=== PATIENT | female | born 1960 | race Caucasian/White ===

== ENCOUNTER → 2016-08-31 | Outpatient (CLI) | payer OTHER | END | disposition home or self-care (01) | LOC: CFH 08:11 | PROVIDERS: ATTEND Internal Medicine Critical Care Medicine | DX: Z12.2 Encounter for screening for malignant neoplasm of respiratory organs (principal); R91.1 Solitary pulmonary nodule; D73.9 Disease of spleen, unspecified; K44.9 Diaphragmatic hernia without obstruction or gangrene; Z87.891 Personal history of nicotine dependence | CPT/HCPCS: G0297 ==

== ENCOUNTER → 2017-02-16 | Outpatient (CLI) | payer OTHER | LOC: STAR 15:12 | PROVIDERS: ATTEND Surgery | DX: Z02.9 Encounter for administrative examinations, unspecified (principal) ==

== ENCOUNTER 2017-03-01 06:04 | Day surgery (SDC) | payer OTHER ==
[2017-02-16 15:09] VITALS: BP 115/64
[~2017-03-01] VITALS: Ht 175.3 cm; Wt 97.8 kg
[~2017-03-01 06:04] MED LIST: ESCI10TA10 PO; ESTR1PAT65 TP
[2017-03-01 06:38] VITALS: BP 115/64
[2017-03-01] MEDS ORDERED: LACTATED RINGERS 1,000 ML IV SCH (06:38)
[2017-03-01] MEDS ORDERED: FENTANYL PF 100 MCG/2ML ONE ×5 (06:48→08:47)
[2017-03-01] MEDS ORDERED: MIDAZOLAM 1 MG/ML, 2ML ONE ×2 (06:48→07:15)
[2017-03-01] MEDS ORDERED: PROPOFOL 10 MG/ML, 20ML ONE ×2 (06:49→07:15)
[2017-03-01] MEDS ORDERED: ROCURONIUM 10 MG/ML,10ML ONE ×2 (06:49→07:15)
[2017-03-01] MEDS ORDERED: GLYCOPYRROLATE 0.4 MG/2 ML, 2ML ONE (06:51)
[2017-03-01] MEDS ORDERED: NEOSTIGMINE 1 MG/ML, 10ML ONE ×2 (06:51→07:15)
[2017-03-01] MEDS ORDERED: ONDANSETRON 2MG/ML, 2ML ONE ×3 (06:51→08:03)
[2017-03-01] MEDS ORDERED: DEXAMETHASONE 4 MG/ML, 1ML ONE ×3 (06:51→07:15)
[2017-03-01] MEDS ORDERED: CEFOTETAN PMX 2GM/50ML 50 ML ONE (06:52)
[2017-03-01] MEDS ORDERED: EPINEPHRINE 1 MG/ML, 1ML ONE (06:56)
[2017-03-01] MEDS ORDERED: BUPIVACAINE/PF 0.5% ONE (06:56)
[2017-03-01] MEDS ORDERED: LIDOCAINE 1%, 2ML SQ PRN (07:00)
[2017-03-01] MEDS ORDERED: CEFOTETAN 2 GM ONE (07:15)
[2017-03-01] MEDS ORDERED: GLYCOPYRROLATE 0.2MG/1ML, 5ML ONE (07:15)
[2017-03-01] MEDS ORDERED: KETOROLAC 30 MG/1 ML ONE (07:15)
[2017-03-01] MEDS ORDERED: EPINEPHRINE 1 MG/ML, 1ML INFIL ONE (07:28)
[2017-03-01] MEDS ORDERED: MEPERIDINE/PF 25MG/0.5ML IVPush PRN (07:30)
[2017-03-01] MEDS ORDERED: ONDANSETRON 2MG/ML, 2ML IVPush PRN (07:30)
[2017-03-01] MEDS ORDERED: HYDROmorphone 1 MG/ML, 1ML IV PRN (07:30)
[2017-03-01] MEDS ORDERED: PROMETHAZINE 25 MG/ML, 1ML IV PRN (07:30)
[2017-03-01] MEDS ORDERED: hydrALAzine 20 MG/ML, 1ML IV PRN (07:30)
[2017-03-01] MEDS ORDERED: OXYcodone 5 MG/5 ML ORAL.SOL UDC PO PRN (07:30)
[2017-03-01] MEDS ORDERED: LABETALOL 5MG/ML, 20ML IV PRN (07:30)
[2017-03-01] MEDS ORDERED: ACETAMINOPHEN 325 MG TABLET PO PRN (07:30)
[2017-03-01] MEDS ORDERED: BUPIVACAINE/PF 0.5% INFIL ONE (07:35)
[2017-03-01] MEDS ORDERED: OXYcodone 5 MG/5 ML ORAL.SOL UDC ONE (08:01)
[2017-03-01] MEDS ORDERED: ACETAMINOPHEN 650 MG/20.3 ML UDC ONE (08:01)
[2017-03-01] MEDS: FENTANYL PF 100 MCG/2ML IV PRN ×3 (08:06→08:48)
== END 2017-03-01 11:18 ==
LOC: OUT 06:04
PROVIDERS: ATTEND Surgery
DX: K80.10 Calculus of gallbladder with chronic cholecystitis without obstruction (principal); G47.33 Obstructive sleep apnea (adult) (pediatric); Z90.710 Acquired absence of both cervix and uterus; Z98.890 Other specified postprocedural states
CPT/HCPCS: 47562; 88304; J0171; J1100; J1885; J2250; J2405; J2704; J2710; J3010; J3490; J7120; S0074

== ENCOUNTER → 2017-03-08 | Outpatient (CLI) | payer OTHER | END | disposition home or self-care (01) | LOC: RAD 08:11 | PROVIDERS: ATTEND Internal Medicine Critical Care Medicine | DX: R91.1 Solitary pulmonary nodule (principal); K44.9 Diaphragmatic hernia without obstruction or gangrene | CPT/HCPCS: 71250 ==

== ENCOUNTER 2018-02-25 09:01 | Inpatient (IN) | payer OTHER ==
[~2018-02-25] VITALS: Ht 175.3 cm; Wt 93.0 kg
[2018-02-25] MEDS ORDERED: PIPERACILLIN/TAZO/PMX 3.375GM 50 ML IVPB ONE (09:30)
[2018-02-25] MEDS ORDERED: VANCOMYCIN PER PHARMACY IV ONE (09:30)
[2018-02-25] MEDS ORDERED: PLEASE ENTER HEIGHT AND WEIGHT MC SCH (09:30)
[2018-02-25 09:56] LABS: TROPONIN I < 0.015 ng/mL (0.000-0.045)
[2018-02-25 09:58] LABS: ALANINE AMINOTRANSFERASE 50 U/L (12-78); ALBUMIN 3.4 g/dL (3.4-5.0); ANION GAP 9 mmol/L (5-15); BASOPHILS # (AUTO) 0.04 x10^3/uL (0-0.1); BASOPHILS % (AUTO) 0 % (0-1); CALCIUM 8.7 mg/dL (8.5-10.1); CHLORIDE 104 mmol/L (98-107); CREATININE 0.87 mg/dL (0.55-1.02); EOSINOPHILS # (AUTO) 0.08 x10^3/uL (0-0.4); EOSINOPHILS % (AUTO) 1 % (1-7); LYMPHOCYTES # (AUTO) 1.67 x10^3/uL (1-3.4); LYMPHOCYTES % (AUTO) 16 % (22-44); MD NO; MEAN CORPUSCULAR HEMOGLOBIN 29.8 pg (27.0-34.8); MEAN CORPUSCULAR HGB CONC 33.5 g/dL (32.4-35.8); MEAN CORPUSCULAR VOLUME 89.1 fL (80-100); MEAN PLATELET VOLUME 7.1 fL (7.4-10.4); MONOCYTES # (AUTO) 0.57 x10^3/uL (0.2-0.8); MONOCYTES % (AUTO) 6 % (2-9); NEUTROPHILS # (AUTO) 7.95 x10^3/uL (1.8-6.8); NEUTROPHILS % (AUTO) 77 % (42-75); PLATELET COUNT 305 x10^3/uL (130-400); RED BLOOD COUNT 4.88 x10^6/uL (3.82-5.3); RED CELL DISTRIBUTION WIDTH 13.9 % (9.6-15.2)
[2018-02-25 10:00] LABS: ALKALINE PHOSPHATASE 98 U/L (45-117); BILIRUBIN,TOTAL 0.5 mg/dL (0.2-1.0); TOTAL PROTEIN 7.6 g/dL (6.4-8.2)
[2018-02-25] MEDS ORDERED: OMNIPAQUE 350 MG/ML, 100ML BOTTLE ONE (10:25)
[2018-02-25] MEDS ORDERED: VANCOMYCIN 1,500 MG in SODIUM CHLORIDE 0.9% 250 ML IV ONE (10:30)
[2018-02-25] MEDS ORDERED: PIPERACILLIN/TAZO/PMX 3.375GM 50 ML ONE (11:04)
[2018-02-25] MEDS ORDERED: METHOCARBAMOL 500 MG TABLET PO PRN (13:30)
[2018-02-25] MEDS ORDERED: ACETAMINOPHEN 325 MG TABLET PO PRN (13:30)
[2018-02-25] MEDS ORDERED: ERGOCALCIFEROL 8,000UNIT/ML PO SCH (13:30)
[2018-02-25] MEDS ORDERED: hydrALAzine 20 MG/ML, 1ML IVPush PRN (13:30)
[2018-02-25] MEDS ORDERED: ONDANSETRON 2MG/ML, 2ML IVPush PRN (13:30)
[2018-02-25] MEDS: SODIUM CHLORIDE 0.9% 1,000 ML IV SCH ×2 (13:40→21:26)
[2018-02-25] MEDS ORDERED: ERGOCALCIFEROL 50,000 UNIT CAPSULE PO SCH (14:00)
[2018-02-25] MEDS: ENOXAPARIN 40 MG/0.4 ML SQ SCH (14:26)
[2018-02-25] MEDS: KETOROLAC 30 MG/1 ML IV SCH ×2 (14:34→21:26)
[2018-02-25 14:50] LABS: BASOPHILS # (AUTO) 0.04 x10^3/uL (0-0.1); BASOPHILS % (AUTO) 0 % (0-1); EOSINOPHILS # (AUTO) 0.08 x10^3/uL (0-0.4); EOSINOPHILS % (AUTO) 1 % (1-7); LYMPHOCYTES # (AUTO) 1.92 x10^3/uL (1-3.4); LYMPHOCYTES % (AUTO) 18 % (22-44); MD NO; MEAN CORPUSCULAR HEMOGLOBIN 29.7 pg (27.0-34.8); MEAN CORPUSCULAR HGB CONC 33.8 g/dL (32.4-35.8); MEAN CORPUSCULAR VOLUME 87.7 fL (80-100); MEAN PLATELET VOLUME 6.8 fL (7.4-10.4); MONOCYTES # (AUTO) 0.53 x10^3/uL (0.2-0.8); MONOCYTES % (AUTO) 5 % (2-9); NEUTROPHILS # (AUTO) 8.02 x10^3/uL (1.8-6.8); NEUTROPHILS % (AUTO) 76 % (42-75); PLATELET COUNT 324 x10^3/uL (130-400); RED BLOOD COUNT 4.67 x10^6/uL (3.82-5.3); RED CELL DISTRIBUTION WIDTH 13.7 % (9.6-15.2)
[2018-02-25 14:56] VITALS: BP 102/68
[2018-02-25] MEDS: CEFTRIAXONE PMX 2GM/50ML 50 ML IV SCH (15:55)
[2018-02-25] MEDS: AZITHROMYCIN 500 MG in SODIUM CHLORIDE 0.9% 250 ML IV SCH (16:45)
[2018-02-25] MEDS: ALBUTEROL SULFATE 2.5 MG/3 ML NPPB SCH ×2 (18:00→22:00)
[2018-02-25 20:42] VITALS: BP 99/64
[2018-02-25] MEDS: GUAIFENESIN ER 600 MG TABLET PO SCH (21:26)
[2018-02-25] MEDS: TEMAZEPAM 15 MG CAPSULE PO PRN (21:26)
[2018-02-26 01:20] VITALS: BP 99/64
[2018-02-26] MEDS: KETOROLAC 30 MG/1 ML IV SCH ×4 (03:42→21:39)
[2018-02-26] MEDS: SODIUM CHLORIDE 0.9% 1,000 ML IV SCH ×3 (05:14→23:33)
[2018-02-26] MEDS: ALBUTEROL SULFATE 2.5 MG/3 ML NPPB SCH ×3 (06:00→21:00)
[2018-02-26 06:36] LABS: ALANINE AMINOTRANSFERASE 42 U/L (12-78); ALBUMIN 2.6 g/dL (3.4-5.0); ANION GAP 6 mmol/L (5-15); CHLORIDE 110 mmol/L (98-107)
[2018-02-26 06:38] LABS: ALKALINE PHOSPHATASE 78 U/L (45-117); BILIRUBIN,TOTAL 0.3 mg/dL (0.2-1.0); TOTAL PROTEIN 6.1 g/dL (6.4-8.2)
[2018-02-26 08:00] VITALS: BP 98/62
[2018-02-26] MEDS: ESTRADIOL 0.1 MG/24 HR PATCH TD SCH (09:00)
[2018-02-26] MEDS: GUAIFENESIN ER 600 MG TABLET PO SCH ×2 (10:18→21:39)
[2018-02-26] MEDS: CITALOPRAM 20 MG TABLET PO SCH (10:19)
[2018-02-26] MEDS: ENOXAPARIN 40 MG/0.4 ML SQ SCH (13:30)
[2018-02-26] MEDS: CEFTRIAXONE PMX 2GM/50ML 50 ML IV SCH (15:07)
[2018-02-26 15:11] VITALS: BP 108/87
[2018-02-26] MEDS: AZITHROMYCIN 500 MG in SODIUM CHLORIDE 0.9% 250 ML IV SCH (16:16)
[2018-02-26 20:31] VITALS: BP 111/70
[2018-02-26] MEDS: TEMAZEPAM 15 MG CAPSULE PO PRN (21:39)
[2018-02-27 00:28] VITALS: BP 95/60
[2018-02-27] MEDS: KETOROLAC 30 MG/1 ML IV SCH ×4 (03:30→21:30)
[2018-02-27 06:59] VITALS: BP 113/72
[2018-02-27] MEDS: SODIUM CHLORIDE 0.9% 1,000 ML IV SCH (07:39)
[2018-02-27] MEDS: ESTRADIOL 0.1 MG/24 HR PATCH TD SCH (08:19)
[2018-02-27] MEDS: GUAIFENESIN ER 600 MG TABLET PO SCH ×2 (08:31→21:34)
[2018-02-27] MEDS: CITALOPRAM 20 MG TABLET PO SCH (08:31)
[2018-02-27] MEDS: ALBUTEROL SULFATE 2.5 MG/3 ML NPPB SCH ×4 (12:02→21:00)
[2018-02-27 12:37] VITALS: BP 117/63
[2018-02-27] MEDS: ENOXAPARIN 40 MG/0.4 ML SQ SCH (13:30)
[2018-02-27] MEDS: CEFTRIAXONE PMX 2GM/50ML 50 ML IV SCH (14:51)
[2018-02-27] MEDS: AZITHROMYCIN 500 MG in SODIUM CHLORIDE 0.9% 250 ML IV SCH (15:54)
[2018-02-27 16:26] LABS: CLOSTRIDIUM DIFFICILE ANTIGEN NEGATIVE; CLOSTRIDIUM DIFFICILE TOXIN NEGATIVE (Negative)
[2018-02-27 18:57] VITALS: BP 105/68
[2018-02-27] MEDS: IBUPROFEN 600 MG TABLET PO PRN (19:50)
[2018-02-28] MEDS: KETOROLAC 30 MG/1 ML IV SCH ×2 (02:54→08:25)
[2018-02-28 03:09] VITALS: BP 102/63
[2018-02-28 06:37] VITALS: BP 108/71
[2018-02-28] MEDS: ESTRADIOL 0.1 MG/24 HR PATCH TD SCH (08:20)
[2018-02-28] MEDS: IBUPROFEN 600 MG TABLET PO PRN (08:24)
[2018-02-28] MEDS: CITALOPRAM 20 MG TABLET PO SCH (08:24)
[2018-02-28] MEDS: GUAIFENESIN ER 600 MG TABLET PO SCH (08:25)
[2018-02-28] MEDS ORDERED: ERGO500017 PO (08:32)
[2018-02-28] MEDS ORDERED: GUAI600T31 PO (08:32)
[2018-02-28] MEDS ORDERED: AZIT500T PO (08:32)
[2018-02-28] MEDS ORDERED: CEFD300C37 PO (08:32)
[2018-02-28] MEDS ORDERED: KETO10TA PO (08:32)
[2018-02-28] MEDS ORDERED: SIMV40TA PO (08:35)
[2018-02-28] MEDS ORDERED: ALBUTEROL SULFATE 2.5 MG/3 ML NPPB PRN (09:30)
== END 2018-02-28 10:15 | disposition home or self-care (01) | DRG 193 ==
LOC: ED 09:18 → EDIP 11:08 → 3NE 12:11 → DCLOUNGE 02-28 10:00
PROVIDERS: ADMIT Internal Medicine; ATTEND Internal Medicine
DX: J18.1 Lobar pneumonia, unspecified organism (principal); J96.01 Acute respiratory failure with hypoxia; E55.9 Vitamin D deficiency, unspecified; E78.5 Hyperlipidemia, unspecified; R91.1 Solitary pulmonary nodule; D73.4 Cyst of spleen; F32.9 Major depressive disorder, single episode, unspecified; Z80.1 Family history of malignant neoplasm of trachea, bronchus and lung; Z80.3 Family history of malignant neoplasm of breast; Z87.891 Personal history of nicotine dependence; Z90.710 Acquired absence of both cervix and uterus; Z90.49 Acquired absence of other specified parts of digestive tract; Z79.899 Other long term (current) drug therapy
CPT/HCPCS: 36415; 99285; J7613; 71275; 80053; 83605; 83735; 84100; 84484; 85025; 87040; 87324; 93005; 94640; 96365; G0378; J0456; J0696; J1650; J1885; J2543; J3370; Q9967; J7030; J7050